=== PATIENT | female | born 2000 | race Two or more races ===

== ENCOUNTER 2021-04-29 21:04 | Emergency (ER) | payer OTHER ==
[~2021-04-29] VITALS: Ht 160 cm; Wt 84.1 kg
[2021-04-29 22:04] VITALS: BP 134/75
[2021-04-29] MEDS ORDERED: SUMA25TA9 PO (22:09)
== END 2021-04-29 23:43 | disposition left against medical advice (07) ==
LOC: EMS 21:06
DX: R51.9 Headache, unspecified (principal); Z53.21 Procedure and treatment not carried out due to patient leaving prior to being seen by health care provider

== ENCOUNTER 2023-12-04 23:21 | Emergency (ER) | payer OTHER ==
[~2023-12-04] VITALS: Ht 160 cm; Wt 94.5 kg
[~2023-12-04 23:21] MED LIST: SUMA25TA15 PO
[2023-12-04 23:34] VITALS: BP 132/76; PULSE 82; RESP 18; TEMP 97.7
== END 2023-12-05 02:58 | disposition left against medical advice (07) ==
LOC: EMS 23:22
DX: M79.605 Pain in left leg (principal); Z53.21 Procedure and treatment not carried out due to patient leaving prior to being seen by health care provider
CPT/HCPCS: 99281; Z7502